=== PATIENT | male | born 1950 | race Caucasian/White ===

== ENCOUNTER 2020-03-29 16:03 | Inpatient (IN) ==
[2020-03-30] MEDS: carvediloL 6.25 MG TABLET PO SCH (17:23)
[2020-03-31 04:45] LABS: Basophils # 0.1 K/mcL (0.0-0.2); Basophils % 0.4 %; Eosinophils # 0.2 K/mcL (0.0-0.6); Eosinophils % 1.1 %; Hematocrit 52.3 % (37.5-50.1); Hemoglobin 17.3 g/dL (12.9-16.9); Immature Granulocytes % 0.6 % (0-4); Mean Corpuscular HGB Conc 33.1 g/dL (31.6-35.5); Mean Corpuscular Hemoglobin 28.5 pg (28.0-33.3); Mean Corpuscular Volume 86.2 fL (83.0-100.0); Mean Platelet Volume 9.6 fL (9.4-12.4); Monocytes # 1.2 K/mcL (0.0-1.3); Monocytes % 8.7 %; Neutrophils # 10.5 K/mcL (1.6-8.9); Platelet Count 254 K/mcL (140-400); Red Blood Count 6.07 M/mcL (4.19-5.50); Red Cell Distribution Width 14.2 % (11.5-14.5); Segmented Neutrophils % 75.2 %
[2020-03-31 05:02] LABS: Alanine Aminotransferase 25 Units/L (7-52); Albumin 3.5 g/dL (3.5-5.7); Albumin/Globulin Ratio 1.1 (1.1-2.2); Alkaline Phosphatase 56 Units/L (34-104); Aspartate Amino Transferase 18 Units/L (13-39); BUN/Creatinine Ratio 27 (6-26); Bilirubin,Total 0.8 mg/dL (0.3-1.0); Blood Urea Nitrogen 25 mg/dL (8-23); Calcium 8.6 mg/dL (8.6-10.3); Carbon Dioxide 29 mEq/L (23-29); Chloride 102 mEq/L (98-107); Globulin 3.1 g/dL (2.4-3.5); Glucose 110 mg/dL (70-105); Osmolality,Calculated 291 (280-300); Potassium 3.9 mEq/L (3.5-5.1); Sodium 138 mEq/L (136-145); Total Protein 6.6 g/dL (6.4-8.9); eGFR For African Americans > 60 (> 60); eGFR For Non-African Americans > 60 (> 60)
[2020-03-31] MEDS: *HR* Enoxaparin 40 MG/0.4 ML SYRINGE SQ SCH (05:35)
[2020-03-31] MEDS: carvediloL 6.25 MG TABLET PO SCH ×2 (05:35→17:21)
[2020-03-31] MEDS: Aspirin Enteric Coated 81 MG Tablet PO SCH (08:57)
[2020-03-31 16:49] LABS: Bilirubin,Urine Small (Negative); Blood,Urine Large (Negative); Clarity,Urine Slightly Cloudy (Clear); Color,Urine Amber (Yellow); Glucose,Urine (UA) Normal (Normal); Ketones,Urine Negative (Negative); Leukocyte Esterase,Urine Small (Negative); Nitrite,Urine Negative (Negative); Protein,Urine 100 mg/dL (Neg-Trace); Specific Gravity,Urine 1.025 (1.010-1.025); Urobilinogen,Urine Normal (Normal)
[2020-03-31 16:59] LABS: Amorphous Sediment,Urine Few per hpf (None-Few); Bacteria,Urine Many per hpf (None-Few); RBC,Urine TNTC per hpf (0-3); Squamous Epithelial Cell,Urine Few per hpf (None-Few)
[2020-04-01 04:33] LABS: Basophils # 0.1 K/mcL (0.0-0.2); Basophils % 0.3 %; Eosinophils # 0.1 K/mcL (0.0-0.6); Eosinophils % 0.4 %; Hematocrit 52.5 % (37.5-50.1); Hemoglobin 17.1 g/dL (12.9-16.9); Immature Granulocytes % 0.7 % (0-4); Lymphocytes # 2.1 K/mcL (0.6-4.6); Lymphocytes % 13.1 %; Mean Corpuscular HGB Conc 32.6 g/dL (31.6-35.5); Mean Corpuscular Hemoglobin 28.1 pg (28.0-33.3); Mean Corpuscular Volume 86.2 fL (83.0-100.0); Mean Platelet Volume 9.6 fL (9.4-12.4); Monocytes # 1.4 K/mcL (0.0-1.3); Monocytes % 8.9 %; Neutrophils # 12.1 K/mcL (1.6-8.9); Platelet Count 251 K/mcL (140-400); Red Blood Count 6.09 M/mcL (4.19-5.50); Segmented Neutrophils % 76.6 %; White Blood Count 15.8 K/mcL (4.3-11.1)
[2020-04-01 04:51] LABS: BUN/Creatinine Ratio 24 (6-26); Blood Urea Nitrogen 24 mg/dL (8-23); Calcium 8.6 mg/dL (8.6-10.3); Carbon Dioxide 29 mEq/L (23-29); Chloride 101 mEq/L (98-107); Glucose 127 mg/dL (70-105); Osmolality,Calculated 288 (280-300); Potassium 4.1 mEq/L (3.5-5.1); Sodium 136 mEq/L (136-145); eGFR For African Americans > 60 (> 60); eGFR For Non-African Americans > 60 (> 60)
[2020-04-01] MEDS: carvediloL 6.25 MG TABLET PO SCH ×2 (05:07→16:47)
[2020-04-01] MEDS: *HR* Enoxaparin 40 MG/0.4 ML SYRINGE SQ SCH (05:08)
[2020-04-01] MEDS: Aspirin Enteric Coated 81 MG Tablet PO SCH (08:51)
[2020-04-01] MEDS: cefTRIAXone 1,000 MG in 0.9 % Sodium Chloride Mini Bag 100 ML IVPB SCH (13:24)
[2020-04-01] MEDS: Nystatin POWDER 30 GM BOTTLE TP SCH ×2 (16:48→20:47)
[2020-04-01] MEDS ORDERED: Nystatin POWDER 30 GM BOTTLE TP SCH (21:00)
[2020-04-02] MEDS: *HR* Enoxaparin 40 MG/0.4 ML SYRINGE SQ SCH (04:14)
[2020-04-02] MEDS: carvediloL 6.25 MG TABLET PO SCH ×2 (04:14→17:38)
[2020-04-02 06:10] LABS: Basophils # 0.1 K/mcL (0.0-0.2); Basophils % 0.5 %; Eosinophils # 0.2 K/mcL (0.0-0.6); Eosinophils % 1.7 %; Hemoglobin 16.4 g/dL (12.9-16.9); Immature Granulocytes % 1.1 % (0-4); Lymphocytes # 2.2 K/mcL (0.6-4.6); Lymphocytes % 17.3 %; Mean Corpuscular HGB Conc 32.2 g/dL (31.6-35.5); Mean Corpuscular Hemoglobin 27.7 pg (28.0-33.3); Mean Corpuscular Volume 86.3 fL (83.0-100.0); Monocytes # 1.2 K/mcL (0.0-1.3); Monocytes % 9.7 %; Neutrophils # 8.7 K/mcL (1.6-8.9); Platelet Count 261 K/mcL (140-400); Red Blood Count 5.91 M/mcL (4.19-5.50); Red Cell Distribution Width 13.8 % (11.5-14.5); Segmented Neutrophils % 69.7 %; White Blood Count 12.5 K/mcL (4.3-11.1)
[2020-04-02 06:27] LABS: BUN/Creatinine Ratio 23 (6-26); Blood Urea Nitrogen 21 mg/dL (8-23); Calcium 8.5 mg/dL (8.6-10.3); Carbon Dioxide 29 mEq/L (23-29); Chloride 101 mEq/L (98-107); Glucose 109 mg/dL (70-105); Osmolality,Calculated 288 (280-300); Potassium 3.9 mEq/L (3.5-5.1); Sodium 137 mEq/L (136-145); eGFR For African Americans > 60 (> 60); eGFR For Non-African Americans > 60 (> 60)
[2020-04-02] MEDS: cefTRIAXone 1,000 MG in 0.9 % Sodium Chloride Mini Bag 100 ML IVPB SCH (09:27)
[2020-04-02] MEDS: Nystatin POWDER 30 GM BOTTLE TP SCH ×2 (09:28→20:32)
[2020-04-02] MEDS: Aspirin Enteric Coated 81 MG Tablet PO SCH (09:28)
[2020-04-03] MEDS: carvediloL 6.25 MG TABLET PO SCH ×2 (05:49→16:50)
[2020-04-03] MEDS: *HR* Enoxaparin 40 MG/0.4 ML SYRINGE SQ SCH (05:49)
[2020-04-03] MEDS: Nystatin POWDER 30 GM BOTTLE TP SCH ×2 (08:57→21:13)
[2020-04-03] MEDS: cefTRIAXone 1,000 MG in 0.9 % Sodium Chloride Mini Bag 100 ML IVPB SCH (08:57)
[2020-04-03] MEDS: Aspirin Enteric Coated 81 MG Tablet PO SCH (08:57)
[2020-04-03] MEDS ORDERED: *HR* LORazepam 0.5 MG TABLET PO ONE (10:55)
[2020-04-04] MEDS: *HR* Enoxaparin 40 MG/0.4 ML SYRINGE SQ SCH (06:50)
[2020-04-04] MEDS: carvediloL 6.25 MG TABLET PO SCH ×2 (06:50→16:50)
[2020-04-04] MEDS: Aspirin Enteric Coated 81 MG Tablet PO SCH (09:08)
[2020-04-04] MEDS: cefTRIAXone 1,000 MG in 0.9 % Sodium Chloride Mini Bag 100 ML IVPB SCH (09:08)
[2020-04-04] MEDS: Nystatin POWDER 30 GM BOTTLE TP SCH ×2 (09:09→20:02)
[2020-04-05] MEDS: carvediloL 6.25 MG TABLET PO SCH ×2 (05:25→18:09)
[2020-04-05] MEDS: Simethicone 80 MG TAB.CHEW PO PRN (05:26)
[2020-04-05] MEDS: *HR* Enoxaparin 40 MG/0.4 ML SYRINGE SQ SCH (05:26)
[2020-04-05] MEDS: Aspirin Enteric Coated 81 MG Tablet PO SCH (08:59)
[2020-04-05] MEDS: cefTRIAXone 1,000 MG in 0.9 % Sodium Chloride Mini Bag 100 ML IVPB SCH (09:00)
[2020-04-05] MEDS: Nystatin POWDER 30 GM BOTTLE TP SCH ×2 (09:03→20:11)
[2020-04-05] MEDS ORDERED: polyethylene glycoL 3350 17 GM POWD.PACK PO PRN (18:09)
[2020-04-05] MEDS: Sennosides/Docusate Sodium TABLET PO SCH (20:04)
[2020-04-06] MEDS: carvediloL 6.25 MG TABLET PO SCH ×2 (04:43→15:51)
[2020-04-06] MEDS: *HR* Enoxaparin 40 MG/0.4 ML SYRINGE SQ SCH (04:43)
[2020-04-06] MEDS: Aspirin Enteric Coated 81 MG Tablet PO SCH (09:42)
[2020-04-06] MEDS: Sennosides/Docusate Sodium TABLET PO SCH ×2 (09:42→20:25)
[2020-04-06] MEDS: Nystatin POWDER 30 GM BOTTLE TP SCH ×2 (13:27→20:27)
[2020-04-07] MEDS: Simethicone 80 MG TAB.CHEW PO PRN ×2 (02:56→21:21)
[2020-04-07] MEDS: carvediloL 6.25 MG TABLET PO SCH ×2 (04:21→16:33)
[2020-04-07] MEDS: *HR* Enoxaparin 40 MG/0.4 ML SYRINGE SQ SCH (04:23)
[2020-04-07 06:15] LABS: Hematocrit 48.4 % (37.5-50.1); Hemoglobin 15.6 g/dL (12.9-16.9); Mean Corpuscular HGB Conc 32.2 g/dL (31.6-35.5); Mean Corpuscular Hemoglobin 27.9 pg (28.0-33.3); Mean Corpuscular Volume 86.6 fL (83.0-100.0); Mean Platelet Volume 9.3 fL (9.4-12.4); Platelet Count 299 K/mcL (140-400); Red Blood Count 5.59 M/mcL (4.19-5.50); Red Cell Distribution Width 13.4 % (11.5-14.5)
[2020-04-07 06:28] LABS: BUN/Creatinine Ratio 16 (6-26); Blood Urea Nitrogen 14 mg/dL (8-23); Calcium 8.6 mg/dL (8.6-10.3); Carbon Dioxide 31 mEq/L (23-29); Chloride 102 mEq/L (98-107); Glucose 110 mg/dL (70-105); Magnesium 2.2 mg/dL (1.6-2.6); Osmolality,Calculated 289 (280-300); Sodium 139 mEq/L (136-145); eGFR For African Americans > 60 (> 60); eGFR For Non-African Americans > 60 (> 60)
[2020-04-07] MEDS: Sennosides/Docusate Sodium TABLET PO SCH ×2 (09:48→21:21)
[2020-04-07] MEDS: Aspirin Enteric Coated 81 MG Tablet PO SCH (09:48)
[2020-04-07] MEDS: Nystatin POWDER 30 GM BOTTLE TP SCH ×2 (09:48→21:22)
[2020-04-08] MEDS: *HR* Enoxaparin 40 MG/0.4 ML SYRINGE SQ SCH (05:31)
[2020-04-08] MEDS: carvediloL 6.25 MG TABLET PO SCH ×2 (05:31→16:58)
[2020-04-08] MEDS: Sennosides/Docusate Sodium TABLET PO SCH ×2 (09:22→20:03)
[2020-04-08] MEDS: Aspirin Enteric Coated 81 MG Tablet PO SCH (09:22)
[2020-04-08] MEDS: Nystatin POWDER 30 GM BOTTLE TP SCH ×2 (09:23→20:04)
[2020-04-08] MEDS: PARoxetine 20 MG TABLET PO SCH (13:04)
[2020-04-08] MEDS: Simethicone 80 MG TAB.CHEW PO PRN (20:04)
[2020-04-09] MEDS: *HR* Enoxaparin 40 MG/0.4 ML SYRINGE SQ SCH (06:09)
[2020-04-09] MEDS: carvediloL 6.25 MG TABLET PO SCH ×3 (06:09→18:52)
[2020-04-09] MEDS: Sennosides/Docusate Sodium TABLET PO SCH ×2 (07:21→20:08)
[2020-04-09] MEDS: Nystatin POWDER 30 GM BOTTLE TP SCH ×2 (07:42→20:08)
[2020-04-09] MEDS: Aspirin Enteric Coated 81 MG Tablet PO SCH (07:44)
[2020-04-09] MEDS: PARoxetine 20 MG TABLET PO SCH (07:44)
[2020-04-09] MEDS ORDERED: 0.9 % Sodium Chloride 1,000 ML ONE (12:35)
[2020-04-09 12:36] LABS: Basophils % 0.5 %; Eosinophils # 0.1 K/mcL (0.0-0.6); Eosinophils % 1.5 %; Immature Granulocytes % 0.6 % (0-4); Lymphocytes # 1.5 K/mcL (0.6-4.6); Lymphocytes % 17.7 %; Mean Corpuscular HGB Conc 32.7 g/dL (31.6-35.5); Mean Corpuscular Hemoglobin 28.3 pg (28.0-33.3); Mean Corpuscular Volume 86.7 fL (83.0-100.0); Monocytes # 0.8 K/mcL (0.0-1.3); Monocytes % 9.5 %; Platelet Count 297 K/mcL (140-400); Red Blood Count 5.65 M/mcL (4.19-5.50); Red Cell Distribution Width 13.4 % (11.5-14.5); Segmented Neutrophils % 70.2 %; White Blood Count 8.6 K/mcL (4.3-11.1)
[2020-04-09] MEDS: 0.9 % Sodium Chloride 1,000 ML IVC SCH ×2 (12:55→21:12)
[2020-04-09 12:56] LABS: BUN/Creatinine Ratio 17 (6-26); Blood Urea Nitrogen 14 mg/dL (8-23); Calcium 8.6 mg/dL (8.6-10.3); Carbon Dioxide 28 mEq/L (23-29); Chloride 104 mEq/L (98-107); Glucose 98 mg/dL (70-105); Magnesium 2.1 mg/dL (1.6-2.6); Osmolality,Calculated 284 (280-300); Potassium 4.4 mEq/L (3.5-5.1); Sodium 137 mEq/L (136-145); eGFR For African Americans > 60 (> 60); eGFR For Non-African Americans > 60 (> 60)
[2020-04-09 12:59] LABS: Troponin I < 0.03 ng/mL (< 0.04)
[2020-04-09] MEDS ORDERED: Perflutren Lipid Microsphere 1.3 ML in 0.9 % Sodium Chloride 8.7 ML IVP PRN (12:59)
[2020-04-10] MEDS: *HR* Enoxaparin 40 MG/0.4 ML SYRINGE SQ SCH (05:39)
[2020-04-10] MEDS: 0.9 % Sodium Chloride 1,000 ML IVC SCH ×2 (05:40→14:22)
[2020-04-10] MEDS: Aspirin Enteric Coated 81 MG Tablet PO SCH (08:05)
[2020-04-10] MEDS: PARoxetine 20 MG TABLET PO SCH (08:05)
[2020-04-10] MEDS: Nystatin POWDER 30 GM BOTTLE TP SCH ×2 (08:05→20:28)
[2020-04-10] MEDS: Sennosides/Docusate Sodium TABLET PO SCH ×2 (08:05→20:27)
[2020-04-10] MEDS: carvediloL 6.25 MG TABLET PO SCH (09:25)
[2020-04-10 09:40] LABS: Basophils # 0.1 K/mcL (0.0-0.2); Basophils % 0.7 %; Eosinophils # 0.2 K/mcL (0.0-0.6); Eosinophils % 2.7 %; Hematocrit 47.5 % (37.5-50.1); Hemoglobin 15.3 g/dL (12.9-16.9); Immature Granulocytes % 0.4 % (0-4); Lymphocytes # 1.7 K/mcL (0.6-4.6); Lymphocytes % 24.6 %; Mean Corpuscular HGB Conc 32.2 g/dL (31.6-35.5); Mean Corpuscular Hemoglobin 28.2 pg (28.0-33.3); Mean Corpuscular Volume 87.6 fL (83.0-100.0); Mean Platelet Volume 9.1 fL (9.4-12.4); Monocytes # 0.6 K/mcL (0.0-1.3); Monocytes % 8.7 %; Neutrophils # 4.3 K/mcL (1.6-8.9); Platelet Count 260 K/mcL (140-400); Red Blood Count 5.42 M/mcL (4.19-5.50); Red Cell Distribution Width 13.3 % (11.5-14.5); Segmented Neutrophils % 62.9 %; White Blood Count 6.8 K/mcL (4.3-11.1)
[2020-04-10 09:56] LABS: BUN/Creatinine Ratio 15 (6-26); Blood Urea Nitrogen 12 mg/dL (8-23); Carbon Dioxide 27 mEq/L (23-29); Chloride 107 mEq/L (98-107); Glucose 138 mg/dL (70-105); Magnesium 1.9 mg/dL (1.6-2.6); Osmolality,Calculated 290 (280-300); Sodium 139 mEq/L (136-145); eGFR For African Americans > 60 (> 60); eGFR For Non-African Americans > 60 (> 60)
[2020-04-10] MEDS: Simethicone 80 MG TAB.CHEW PO PRN (14:25)
[2020-04-11] MEDS ORDERED: hydrALAZINE 10 MG TABLET PO ONE (00:32)
[2020-04-11] MEDS: *HR* Enoxaparin 40 MG/0.4 ML SYRINGE SQ SCH (06:33)
[2020-04-11] MEDS: PARoxetine 20 MG TABLET PO SCH (08:28)
[2020-04-11] MEDS: Sennosides/Docusate Sodium TABLET PO SCH ×2 (08:29→21:21)
[2020-04-11] MEDS: Aspirin Enteric Coated 81 MG Tablet PO SCH (08:29)
[2020-04-11] MEDS: Nystatin POWDER 30 GM BOTTLE TP SCH ×2 (08:29→21:24)
[2020-04-11] MEDS ORDERED: CloNIDine Patch 0.1 MG PATCH (WEEKLY) TD SCH (08:30)
[2020-04-11] MEDS ORDERED: carvediloL 6.25 MG TABLET PO SCH (08:30)
[2020-04-11] MEDS: carvediloL 6.25 MG TABLET PO SCH (09:34)
[2020-04-11] MEDS: hydrALAZINE 10 MG TABLET PO SCH ×2 (10:57→17:12)
[2020-04-11] MEDS: Simethicone 80 MG TAB.CHEW PO PRN (13:32)
[2020-04-11] MEDS ORDERED: hydrALAZINE 25 MG TABLET PO PRN (22:00)
[2020-04-11] MEDS: hydrALAZINE 25 MG TABLET PO SCH ×2 (22:13→23:48)
[2020-04-12] MEDS: *HR* Enoxaparin 40 MG/0.4 ML SYRINGE SQ SCH (04:54)
[2020-04-12] MEDS: Aspirin Enteric Coated 81 MG Tablet PO SCH (07:52)
[2020-04-12] MEDS: Sennosides/Docusate Sodium TABLET PO SCH ×2 (07:52→19:50)
[2020-04-12] MEDS: hydrALAZINE 25 MG TABLET PO SCH ×3 (07:52→23:57)
[2020-04-12] MEDS: PARoxetine 20 MG TABLET PO SCH (07:52)
[2020-04-12] MEDS: Nystatin POWDER 30 GM BOTTLE TP SCH ×2 (07:53→19:50)
[2020-04-12] MEDS ORDERED: amLODIPine 5 MG TABLET PO SCH (10:00)
[2020-04-13] MEDS: *HR* Enoxaparin 40 MG/0.4 ML SYRINGE SQ SCH (04:54)
[2020-04-13] MEDS: Simethicone 80 MG TAB.CHEW PO PRN ×2 (07:00→23:35)
[2020-04-13] MEDS: Sennosides/Docusate Sodium TABLET PO SCH ×2 (09:09→22:53)
[2020-04-13] MEDS: amLODIPine 5 MG TABLET PO SCH (09:09)
[2020-04-13] MEDS: Aspirin Enteric Coated 81 MG Tablet PO SCH (09:09)
[2020-04-13] MEDS: hydrALAZINE 25 MG TABLET PO SCH ×3 (09:09→22:53)
[2020-04-13] MEDS: PARoxetine 20 MG TABLET PO SCH (09:10)
[2020-04-13] MEDS: Nystatin POWDER 30 GM BOTTLE TP SCH ×2 (09:10→22:54)
[2020-04-14] MEDS: *HR* Enoxaparin 40 MG/0.4 ML SYRINGE SQ SCH (05:51)
[2020-04-14] MEDS: amLODIPine 5 MG TABLET PO SCH (08:41)
[2020-04-14] MEDS: Sennosides/Docusate Sodium TABLET PO SCH ×2 (08:42→21:56)
[2020-04-14] MEDS: Aspirin Enteric Coated 81 MG Tablet PO SCH (08:42)
[2020-04-14] MEDS: PARoxetine 20 MG TABLET PO SCH (08:42)
[2020-04-14] MEDS: hydrALAZINE 25 MG TABLET PO SCH ×3 (08:42→22:00)
[2020-04-14] MEDS: Nystatin POWDER 30 GM BOTTLE TP SCH ×2 (17:38→21:56)
[2020-04-15] MEDS: *HR* Enoxaparin 40 MG/0.4 ML SYRINGE SQ SCH (04:10)
[2020-04-15] MEDS: Sennosides/Docusate Sodium TABLET PO SCH ×2 (07:45→20:20)
[2020-04-15] MEDS: PARoxetine 20 MG TABLET PO SCH (07:45)
[2020-04-15] MEDS: amLODIPine 5 MG TABLET PO SCH (07:45)
[2020-04-15] MEDS: Aspirin Enteric Coated 81 MG Tablet PO SCH (07:45)
[2020-04-15] MEDS: Nystatin POWDER 30 GM BOTTLE TP SCH ×2 (07:46→20:20)
[2020-04-15] MEDS: hydrALAZINE 25 MG TABLET PO SCH ×2 (09:33→17:18)
[2020-04-16] MEDS: hydrALAZINE 25 MG TABLET PO SCH ×4 (00:03→22:09)
[2020-04-16] MEDS: Simethicone 80 MG TAB.CHEW PO PRN ×2 (04:11→22:09)
[2020-04-16] MEDS: *HR* Enoxaparin 40 MG/0.4 ML SYRINGE SQ SCH (05:32)
[2020-04-16] MEDS: Aspirin Enteric Coated 81 MG Tablet PO SCH (08:13)
[2020-04-16] MEDS: amLODIPine 5 MG TABLET PO SCH (08:13)
[2020-04-16] MEDS: PARoxetine 20 MG TABLET PO SCH (08:14)
[2020-04-16] MEDS: Nystatin POWDER 30 GM BOTTLE TP SCH ×2 (08:15→22:09)
[2020-04-16] MEDS: Sennosides/Docusate Sodium TABLET PO SCH ×2 (09:44→22:08)
[2020-04-16] MEDS: carvediloL 6.25 MG TABLET PO SCH (15:55)
[2020-04-17] MEDS: *HR* Enoxaparin 40 MG/0.4 ML SYRINGE SQ SCH (05:13)
[2020-04-17 05:20] LABS: Hemoglobin 15.9 g/dL (12.9-16.9); Mean Corpuscular HGB Conc 31.8 g/dL (31.6-35.5); Mean Corpuscular Hemoglobin 27.7 pg (28.0-33.3); Mean Platelet Volume 9.4 fL (9.4-12.4); Platelet Count 271 K/mcL (140-400); Red Blood Count 5.75 M/mcL (4.19-5.50); Red Cell Distribution Width 13.6 % (11.5-14.5); White Blood Count 6.3 K/mcL (4.3-11.1)
[2020-04-17 05:33] LABS: BUN/Creatinine Ratio 17 (6-26); Blood Urea Nitrogen 17 mg/dL (8-23); Calcium 8.7 mg/dL (8.6-10.3); Carbon Dioxide 31 mEq/L (23-29); Chloride 102 mEq/L (98-107); Glucose 105 mg/dL (70-105); Magnesium 1.9 mg/dL (1.6-2.6); Osmolality,Calculated 288 (280-300); Potassium 4.1 mEq/L (3.5-5.1); Sodium 138 mEq/L (136-145); eGFR For African Americans > 60 (> 60); eGFR For Non-African Americans > 60 (> 60)
[2020-04-17] MEDS: carvediloL 6.25 MG TABLET PO SCH (08:13)
[2020-04-17] MEDS: amLODIPine 5 MG TABLET PO SCH (08:14)
[2020-04-17] MEDS: PARoxetine 20 MG TABLET PO SCH (08:14)
[2020-04-17] MEDS: Sennosides/Docusate Sodium TABLET PO SCH ×2 (08:14→20:43)
[2020-04-17] MEDS: hydrALAZINE 25 MG TABLET PO SCH ×2 (08:14→16:23)
[2020-04-17] MEDS: Aspirin Enteric Coated 81 MG Tablet PO SCH (08:15)
[2020-04-17] MEDS: Nystatin POWDER 30 GM BOTTLE TP SCH ×2 (08:18→21:32)
[2020-04-17] MEDS: Simethicone 80 MG TAB.CHEW PO PRN (20:43)
[2020-04-18] MEDS: hydrALAZINE 25 MG TABLET PO SCH ×4 (00:46→23:41)
[2020-04-18] MEDS: *HR* Enoxaparin 40 MG/0.4 ML SYRINGE SQ SCH (05:07)
[2020-04-18] MEDS: amLODIPine 5 MG TABLET PO SCH (09:36)
[2020-04-18] MEDS: PARoxetine 20 MG TABLET PO SCH (09:36)
[2020-04-18] MEDS: Aspirin Enteric Coated 81 MG Tablet PO SCH (09:36)
[2020-04-18] MEDS: Sennosides/Docusate Sodium TABLET PO SCH ×2 (09:36→21:30)
[2020-04-18] MEDS: Nystatin POWDER 30 GM BOTTLE TP SCH ×2 (10:00→21:29)
[2020-04-19] MEDS: *HR* Enoxaparin 40 MG/0.4 ML SYRINGE SQ SCH (05:21)
[2020-04-19] MEDS: PARoxetine 20 MG TABLET PO SCH (07:46)
[2020-04-19] MEDS: Sennosides/Docusate Sodium TABLET PO SCH ×2 (07:46→20:29)
[2020-04-19] MEDS: hydrALAZINE 25 MG TABLET PO SCH ×3 (07:47→23:33)
[2020-04-19] MEDS: Aspirin Enteric Coated 81 MG Tablet PO SCH (07:47)
[2020-04-19] MEDS: Simethicone 80 MG TAB.CHEW PO PRN ×2 (07:47→23:32)
[2020-04-19] MEDS: amLODIPine 5 MG TABLET PO SCH (07:47)
[2020-04-19] MEDS: Nystatin POWDER 30 GM BOTTLE TP SCH ×2 (07:47→20:29)
[2020-04-20] MEDS: *HR* Enoxaparin 40 MG/0.4 ML SYRINGE SQ SCH (04:40)
[2020-04-20] MEDS: Simethicone 80 MG TAB.CHEW PO PRN (04:53)
[2020-04-20] MEDS: Sennosides/Docusate Sodium TABLET PO SCH ×2 (08:34→20:33)
[2020-04-20] MEDS: amLODIPine 5 MG TABLET PO SCH (08:34)
[2020-04-20] MEDS: Aspirin Enteric Coated 81 MG Tablet PO SCH (08:34)
[2020-04-20] MEDS: hydrALAZINE 25 MG TABLET PO SCH ×2 (08:34→17:54)
[2020-04-20] MEDS: PARoxetine 20 MG TABLET PO SCH (09:13)
[2020-04-20] MEDS ORDERED: E-Z-HD (BARIUM SULF) SUSPENSION PO ONE (13:35)
[2020-04-20] MEDS ORDERED: E-Z-PAQUE (BARIUM SULF) SUSP 1 BOTTLE PO ONE (13:35)
[2020-04-20] MEDS: Nystatin POWDER 30 GM BOTTLE TP SCH ×2 (14:12→20:33)
[2020-04-21] MEDS: Simethicone 80 MG TAB.CHEW PO PRN ×4 (01:38→22:56)
[2020-04-21] MEDS: hydrALAZINE 25 MG TABLET PO SCH ×4 (01:39→22:53)
[2020-04-21] MEDS: *HR* Enoxaparin 40 MG/0.4 ML SYRINGE SQ SCH (06:29)
[2020-04-21] MEDS: PARoxetine 20 MG TABLET PO SCH (08:10)
[2020-04-21] MEDS: Aspirin Enteric Coated 81 MG Tablet PO SCH (08:10)
[2020-04-21] MEDS: amLODIPine 5 MG TABLET PO SCH (08:11)
[2020-04-21] MEDS: Nystatin POWDER 30 GM BOTTLE TP SCH ×2 (08:11→20:47)
[2020-04-21] MEDS: Sennosides/Docusate Sodium TABLET PO SCH ×2 (08:11→20:47)
[2020-04-22] MEDS: *HR* Enoxaparin 40 MG/0.4 ML SYRINGE SQ SCH (04:57)
[2020-04-22] MEDS: Sennosides/Docusate Sodium TABLET PO SCH ×2 (08:42→19:56)
[2020-04-22] MEDS: hydrALAZINE 25 MG TABLET PO SCH ×3 (08:42→23:41)
[2020-04-22] MEDS: Simethicone 80 MG TAB.CHEW PO PRN (08:42)
[2020-04-22] MEDS: PARoxetine 20 MG TABLET PO SCH (08:43)
[2020-04-22] MEDS: Aspirin Enteric Coated 81 MG Tablet PO SCH (08:43)
[2020-04-22] MEDS: amLODIPine 5 MG TABLET PO SCH (08:43)
[2020-04-22] MEDS: Nystatin POWDER 30 GM BOTTLE TP SCH ×2 (08:44→22:41)
[2020-04-23] MEDS: Simethicone 80 MG TAB.CHEW PO PRN ×2 (02:09→18:29)
[2020-04-23] MEDS: *HR* Enoxaparin 40 MG/0.4 ML SYRINGE SQ SCH (05:05)
[2020-04-23] MEDS: Sennosides/Docusate Sodium TABLET PO SCH ×2 (08:14→20:16)
[2020-04-23] MEDS: PARoxetine 20 MG TABLET PO SCH (08:14)
[2020-04-23] MEDS: Aspirin Enteric Coated 81 MG Tablet PO SCH (08:14)
[2020-04-23] MEDS: Nystatin POWDER 30 GM BOTTLE TP SCH ×2 (08:15→20:16)
[2020-04-23] MEDS: hydrALAZINE 25 MG TABLET PO SCH ×2 (08:15→17:04)
[2020-04-23] MEDS: amLODIPine 5 MG TABLET PO SCH (10:06)
[2020-04-24] MEDS: hydrALAZINE 25 MG TABLET PO SCH ×3 (00:27→16:31)
[2020-04-24] MEDS: *HR* Enoxaparin 40 MG/0.4 ML SYRINGE SQ SCH (04:46)
[2020-04-24] MEDS: PARoxetine 20 MG TABLET PO SCH (08:26)
[2020-04-24] MEDS: amLODIPine 5 MG TABLET PO SCH (08:26)
[2020-04-24] MEDS: Sennosides/Docusate Sodium TABLET PO SCH ×2 (08:26→19:45)
[2020-04-24] MEDS: Aspirin Enteric Coated 81 MG Tablet PO SCH (08:27)
[2020-04-24] MEDS: Nystatin POWDER 30 GM BOTTLE TP SCH ×2 (08:29→19:45)
[2020-04-25] MEDS: hydrALAZINE 25 MG TABLET PO SCH ×4 (01:53→23:53)
[2020-04-25] MEDS: *HR* Enoxaparin 40 MG/0.4 ML SYRINGE SQ SCH (05:21)
[2020-04-25 05:44] LABS: Hemoglobin 16.1 g/dL (12.9-16.9); Mean Corpuscular HGB Conc 32.2 g/dL (31.6-35.5); Mean Corpuscular Hemoglobin 27.6 pg (28.0-33.3); Mean Corpuscular Volume 85.8 fL (83.0-100.0); Mean Platelet Volume 9.5 fL (9.4-12.4); Platelet Count 237 K/mcL (140-400); Red Blood Count 5.83 M/mcL (4.19-5.50); Red Cell Distribution Width 13.8 % (11.5-14.5); White Blood Count 6.6 K/mcL (4.3-11.1)
[2020-04-25] MEDS: Simethicone 80 MG TAB.CHEW PO PRN ×2 (05:59→23:48)
[2020-04-25 06:16] LABS: Alanine Aminotransferase 33 Units/L (7-52); Albumin 3.4 g/dL (3.5-5.7); Albumin/Globulin Ratio 1.2 (1.1-2.2); Alkaline Phosphatase 57 Units/L (34-104); Aspartate Amino Transferase 25 Units/L (13-39); BUN/Creatinine Ratio 16 (6-26); Bilirubin,Total 0.6 mg/dL (0.3-1.0); Blood Urea Nitrogen 16 mg/dL (8-23); Calcium 8.5 mg/dL (8.6-10.3); Carbon Dioxide 27 mEq/L (23-29); Chloride 104 mEq/L (98-107); Globulin 2.8 g/dL (2.4-3.5); Glucose 105 mg/dL (70-105); Magnesium 1.7 mg/dL (1.6-2.6); Osmolality,Calculated 290 (280-300); Potassium 4.1 mEq/L (3.5-5.1); Sodium 139 mEq/L (136-145); Total Protein 6.2 g/dL (6.4-8.9); eGFR For African Americans > 60 (> 60); eGFR For Non-African Americans > 60 (> 60)
[2020-04-25] MEDS: amLODIPine 5 MG TABLET PO SCH (07:57)
[2020-04-25] MEDS: Sennosides/Docusate Sodium TABLET PO SCH ×2 (07:58→20:12)
[2020-04-25] MEDS: PARoxetine 20 MG TABLET PO SCH (07:58)
[2020-04-25] MEDS: Aspirin Enteric Coated 81 MG Tablet PO SCH (07:58)
[2020-04-25] MEDS: Nystatin POWDER 30 GM BOTTLE TP SCH ×2 (08:00→20:19)
[2020-04-26] MEDS: *HR* Enoxaparin 40 MG/0.4 ML SYRINGE SQ SCH (06:29)
[2020-04-26] MEDS: hydrALAZINE 25 MG TABLET PO SCH ×3 (08:33→23:38)
[2020-04-26] MEDS: amLODIPine 5 MG TABLET PO SCH (08:33)
[2020-04-26] MEDS: Nystatin POWDER 30 GM BOTTLE TP SCH ×2 (08:34→22:59)
[2020-04-26] MEDS: PARoxetine 20 MG TABLET PO SCH (08:34)
[2020-04-26] MEDS: Sennosides/Docusate Sodium TABLET PO SCH ×2 (08:35→22:22)
[2020-04-26] MEDS: Aspirin Enteric Coated 81 MG Tablet PO SCH (08:35)
[2020-04-26] MEDS: Simethicone 80 MG TAB.CHEW PO PRN (14:31)
[2020-04-27] MEDS: *HR* Enoxaparin 40 MG/0.4 ML SYRINGE SQ SCH (05:36)
[2020-04-27] MEDS: amLODIPine 5 MG TABLET PO SCH (08:25)
[2020-04-27] MEDS: hydrALAZINE 25 MG TABLET PO SCH ×2 (08:25→16:45)
[2020-04-27] MEDS: PARoxetine 20 MG TABLET PO SCH (08:25)
[2020-04-27] MEDS: Sennosides/Docusate Sodium TABLET PO SCH ×2 (08:26→21:05)
[2020-04-27] MEDS: Aspirin Enteric Coated 81 MG Tablet PO SCH (08:26)
[2020-04-27] MEDS: Nystatin POWDER 30 GM BOTTLE TP SCH ×2 (08:26→21:09)
[2020-04-27] MEDS: Simethicone 80 MG TAB.CHEW PO PRN ×2 (08:33→22:03)
[2020-04-27] MEDS: Polymyxn-B/Trimeth Opth Drops 10 ML BOTTLE RIGHT EYE SCH ×3 (12:41→21:08)
[2020-04-27] MEDS: Polymyxn-B/Trimeth Opth Drops 10 ML BOTTLE LEFT EYE SCH ×3 (12:42→21:08)
[2020-04-28] MEDS: hydrALAZINE 25 MG TABLET PO SCH ×5 (04:42→22:48)
[2020-04-28] MEDS: Simethicone 80 MG TAB.CHEW PO PRN ×2 (05:33→17:41)
[2020-04-28] MEDS: *HR* Enoxaparin 40 MG/0.4 ML SYRINGE SQ SCH (05:34)
[2020-04-28] MEDS: amLODIPine 5 MG TABLET PO SCH (08:41)
[2020-04-28] MEDS: PARoxetine 20 MG TABLET PO SCH (08:41)
[2020-04-28] MEDS: Aspirin Enteric Coated 81 MG Tablet PO SCH (08:41)
[2020-04-28] MEDS: Sennosides/Docusate Sodium TABLET PO SCH ×2 (08:41→22:48)
[2020-04-28] MEDS: Nystatin POWDER 30 GM BOTTLE TP SCH ×2 (08:42→22:48)
[2020-04-28] MEDS: Polymyxn-B/Trimeth Opth Drops 10 ML BOTTLE RIGHT EYE SCH ×4 (08:42→22:47)
[2020-04-28] MEDS: Polymyxn-B/Trimeth Opth Drops 10 ML BOTTLE LEFT EYE SCH ×4 (08:42→22:48)
[2020-04-29] MEDS: *HR* Enoxaparin 40 MG/0.4 ML SYRINGE SQ SCH (04:47)
[2020-04-29] MEDS: Sennosides/Docusate Sodium TABLET PO SCH ×2 (08:49→21:16)
[2020-04-29] MEDS: amLODIPine 5 MG TABLET PO SCH (08:50)
[2020-04-29] MEDS: PARoxetine 20 MG TABLET PO SCH (08:50)
[2020-04-29] MEDS: hydrALAZINE 25 MG TABLET PO SCH ×2 (08:50→17:37)
[2020-04-29] MEDS: Polymyxn-B/Trimeth Opth Drops 10 ML BOTTLE LEFT EYE SCH ×4 (08:50→21:15)
[2020-04-29] MEDS: Polymyxn-B/Trimeth Opth Drops 10 ML BOTTLE RIGHT EYE SCH ×4 (08:50→21:15)
[2020-04-29] MEDS: Aspirin Enteric Coated 81 MG Tablet PO SCH (08:50)
[2020-04-29] MEDS: Nystatin POWDER 30 GM BOTTLE TP SCH ×2 (08:50→21:16)
[2020-04-29] MEDS: Simethicone 80 MG TAB.CHEW PO PRN ×3 (09:42→21:20)
[2020-04-30] MEDS: hydrALAZINE 25 MG TABLET PO SCH ×4 (02:10→23:57)
[2020-04-30] MEDS: *HR* Enoxaparin 40 MG/0.4 ML SYRINGE SQ SCH (05:26)
[2020-04-30] MEDS: Simethicone 80 MG TAB.CHEW PO PRN ×2 (08:36→22:17)
[2020-04-30] MEDS: amLODIPine 5 MG TABLET PO SCH (08:37)
[2020-04-30] MEDS: Sennosides/Docusate Sodium TABLET PO SCH ×2 (08:37→22:19)
[2020-04-30] MEDS: Nystatin POWDER 30 GM BOTTLE TP SCH ×2 (08:37→22:18)
[2020-04-30] MEDS: Aspirin Enteric Coated 81 MG Tablet PO SCH (08:37)
[2020-04-30] MEDS: PARoxetine 20 MG TABLET PO SCH (08:37)
[2020-04-30] MEDS: Polymyxn-B/Trimeth Opth Drops 10 ML BOTTLE LEFT EYE SCH ×4 (09:07→22:17)
[2020-04-30] MEDS: Polymyxn-B/Trimeth Opth Drops 10 ML BOTTLE RIGHT EYE SCH ×4 (09:07→22:17)
[2020-05-01] MEDS: *HR* Enoxaparin 40 MG/0.4 ML SYRINGE SQ SCH (06:26)
[2020-05-01] MEDS: PARoxetine 20 MG TABLET PO SCH (07:53)
[2020-05-01] MEDS: Aspirin Enteric Coated 81 MG Tablet PO SCH (07:53)
[2020-05-01] MEDS: hydrALAZINE 25 MG TABLET PO SCH ×3 (07:53→23:47)
[2020-05-01] MEDS: amLODIPine 5 MG TABLET PO SCH (07:53)
[2020-05-01] MEDS: Sennosides/Docusate Sodium TABLET PO SCH ×2 (07:54→21:29)
[2020-05-01] MEDS: Nystatin POWDER 30 GM BOTTLE TP SCH ×2 (07:54→21:29)
[2020-05-01] MEDS: Polymyxn-B/Trimeth Opth Drops 10 ML BOTTLE RIGHT EYE SCH ×4 (08:01→21:28)
[2020-05-01] MEDS: Polymyxn-B/Trimeth Opth Drops 10 ML BOTTLE LEFT EYE SCH ×4 (08:01→21:28)
[2020-05-01] MEDS: Simethicone 80 MG TAB.CHEW PO PRN (21:29)
[2020-05-02] MEDS: *HR* Enoxaparin 40 MG/0.4 ML SYRINGE SQ SCH (06:13)
[2020-05-02] MEDS: Simethicone 80 MG TAB.CHEW PO PRN (09:54)
[2020-05-02] MEDS: amLODIPine 5 MG TABLET PO SCH (09:54)
[2020-05-02] MEDS: hydrALAZINE 25 MG TABLET PO SCH ×2 (09:54→15:11)
[2020-05-02] MEDS: Sennosides/Docusate Sodium TABLET PO SCH ×2 (09:54→20:36)
[2020-05-02] MEDS: Aspirin Enteric Coated 81 MG Tablet PO SCH (09:54)
[2020-05-02] MEDS: PARoxetine 20 MG TABLET PO SCH (09:54)
[2020-05-02] MEDS: Polymyxn-B/Trimeth Opth Drops 10 ML BOTTLE RIGHT EYE SCH ×2 (10:00→13:03)
[2020-05-02] MEDS: Polymyxn-B/Trimeth Opth Drops 10 ML BOTTLE LEFT EYE SCH ×4 (10:00→20:34)
[2020-05-02] MEDS: Nystatin POWDER 30 GM BOTTLE TP SCH ×2 (10:00→20:36)
[2020-05-03] MEDS: Simethicone 80 MG TAB.CHEW PO PRN ×2 (01:19→08:31)
[2020-05-03] MEDS: hydrALAZINE 25 MG TABLET PO SCH ×4 (01:20→23:04)
[2020-05-03] MEDS: *HR* Enoxaparin 40 MG/0.4 ML SYRINGE SQ SCH (05:24)
[2020-05-03] MEDS: Aspirin Enteric Coated 81 MG Tablet PO SCH (08:26)
[2020-05-03] MEDS: Sennosides/Docusate Sodium TABLET PO SCH ×2 (08:26→21:10)
[2020-05-03] MEDS: PARoxetine 20 MG TABLET PO SCH (08:26)
[2020-05-03] MEDS: amLODIPine 5 MG TABLET PO SCH (08:26)
[2020-05-03] MEDS: Nystatin POWDER 30 GM BOTTLE TP SCH ×2 (08:27→21:10)
[2020-05-03] MEDS: Polymyxn-B/Trimeth Opth Drops 10 ML BOTTLE LEFT EYE SCH ×4 (08:27→21:09)
[2020-05-03] MEDS: Acetaminophen 325 MG TABLET PO PRN (15:43)
[2020-05-03] MEDS ORDERED: carvediloL 6.25 MG TABLET PO SCH (17:00)
[2020-05-03] MEDS: carvediloL 6.25 MG TABLET PO SCH (17:08)
[2020-05-04] MEDS: *HR* Enoxaparin 40 MG/0.4 ML SYRINGE SQ SCH (04:51)
[2020-05-04] MEDS: Aspirin Enteric Coated 81 MG Tablet PO SCH (08:08)
[2020-05-04] MEDS: carvediloL 6.25 MG TABLET PO SCH ×2 (08:09→16:59)
[2020-05-04] MEDS: amLODIPine 5 MG TABLET PO SCH (08:09)
[2020-05-04] MEDS: hydrALAZINE 25 MG TABLET PO SCH ×3 (08:09→23:24)
[2020-05-04] MEDS: Simethicone 80 MG TAB.CHEW PO PRN (08:09)
[2020-05-04] MEDS: Sennosides/Docusate Sodium TABLET PO SCH ×2 (08:09→19:39)
[2020-05-04] MEDS: PARoxetine 20 MG TABLET PO SCH (08:09)
[2020-05-04] MEDS: Polymyxn-B/Trimeth Opth Drops 10 ML BOTTLE LEFT EYE SCH ×4 (08:09→19:38)
[2020-05-04] MEDS: Nystatin POWDER 30 GM BOTTLE TP SCH ×2 (08:10→19:38)
[2020-05-04] MEDS ORDERED: amLODIPine 5 MG TABLET PO SCH (09:00)
[2020-05-04] MEDS: Acetaminophen 325 MG TABLET PO PRN (19:37)
[2020-05-05] MEDS: *HR* Enoxaparin 40 MG/0.4 ML SYRINGE SQ SCH (04:43)
[2020-05-05] MEDS: Aspirin Enteric Coated 81 MG Tablet PO SCH (07:44)
[2020-05-05] MEDS: hydrALAZINE 25 MG TABLET PO SCH ×2 (07:45→17:08)
[2020-05-05] MEDS: amLODIPine 5 MG TABLET PO SCH (07:45)
[2020-05-05] MEDS: PARoxetine 20 MG TABLET PO SCH (07:45)
[2020-05-05] MEDS: Sennosides/Docusate Sodium TABLET PO SCH ×2 (07:45→21:06)
[2020-05-05] MEDS: carvediloL 6.25 MG TABLET PO SCH (07:45)
[2020-05-05] MEDS: Simethicone 80 MG TAB.CHEW PO PRN (07:55)
[2020-05-05] MEDS: Polymyxn-B/Trimeth Opth Drops 10 ML BOTTLE LEFT EYE SCH ×4 (13:09→21:06)
[2020-05-05] MEDS: Nystatin POWDER 30 GM BOTTLE TP SCH ×2 (13:35→21:10)
[2020-05-06] MEDS: hydrALAZINE 25 MG TABLET PO SCH ×3 (01:16→16:59)
[2020-05-06] MEDS: *HR* Enoxaparin 40 MG/0.4 ML SYRINGE SQ SCH (05:14)
[2020-05-06] MEDS: Simethicone 80 MG TAB.CHEW PO PRN (05:51)
[2020-05-06] MEDS: Aspirin Enteric Coated 81 MG Tablet PO SCH (08:06)
[2020-05-06] MEDS: Sennosides/Docusate Sodium TABLET PO SCH ×2 (08:07→21:16)
[2020-05-06] MEDS: PARoxetine 20 MG TABLET PO SCH (08:07)
[2020-05-06] MEDS: amLODIPine 5 MG TABLET PO SCH (08:07)
[2020-05-06] MEDS: Nystatin POWDER 30 GM BOTTLE TP SCH ×2 (08:08→21:15)
[2020-05-06] MEDS: Polymyxn-B/Trimeth Opth Drops 10 ML BOTTLE LEFT EYE SCH ×4 (08:09→21:16)
[2020-05-07] MEDS: hydrALAZINE 25 MG TABLET PO SCH ×3 (01:34→16:36)
[2020-05-07] MEDS: *HR* Enoxaparin 40 MG/0.4 ML SYRINGE SQ SCH (04:32)
[2020-05-07] MEDS: Aspirin Enteric Coated 81 MG Tablet PO SCH (08:06)
[2020-05-07] MEDS: Sennosides/Docusate Sodium TABLET PO SCH ×2 (08:06→19:56)
[2020-05-07] MEDS: Polymyxn-B/Trimeth Opth Drops 10 ML BOTTLE LEFT EYE SCH ×4 (08:06→19:56)
[2020-05-07] MEDS: Nystatin POWDER 30 GM BOTTLE TP SCH ×2 (08:06→19:56)
[2020-05-07] MEDS: PARoxetine 20 MG TABLET PO SCH (08:06)
[2020-05-07] MEDS: amLODIPine 5 MG TABLET PO SCH (08:06)
[2020-05-07] MEDS: Simethicone 80 MG TAB.CHEW PO PRN (12:27)
[2020-05-08] MEDS: hydrALAZINE 25 MG TABLET PO SCH ×4 (02:43→23:58)
[2020-05-08] MEDS: *HR* Enoxaparin 40 MG/0.4 ML SYRINGE SQ SCH (06:19)
[2020-05-08] MEDS: PARoxetine 20 MG TABLET PO SCH (09:00)
[2020-05-08] MEDS: Aspirin Enteric Coated 81 MG Tablet PO SCH (09:00)
[2020-05-08] MEDS: Sennosides/Docusate Sodium TABLET PO SCH ×2 (09:00→21:12)
[2020-05-08] MEDS: amLODIPine 5 MG TABLET PO SCH (09:00)
[2020-05-08] MEDS: Nystatin POWDER 30 GM BOTTLE TP SCH ×2 (09:01→21:16)
[2020-05-08] MEDS: Polymyxn-B/Trimeth Opth Drops 10 ML BOTTLE LEFT EYE SCH ×4 (09:02→21:13)
[2020-05-09] MEDS: *HR* Enoxaparin 40 MG/0.4 ML SYRINGE SQ SCH (06:25)
[2020-05-09] MEDS: hydrALAZINE 25 MG TABLET PO SCH ×3 (08:07→23:40)
[2020-05-09] MEDS: Aspirin Enteric Coated 81 MG Tablet PO SCH (08:16)
[2020-05-09] MEDS: PARoxetine 20 MG TABLET PO SCH (08:16)
[2020-05-09] MEDS: amLODIPine 5 MG TABLET PO SCH (08:16)
[2020-05-09] MEDS: Sennosides/Docusate Sodium TABLET PO SCH ×2 (08:16→20:24)
[2020-05-09] MEDS: Nystatin POWDER 30 GM BOTTLE TP SCH ×2 (08:17→20:23)
[2020-05-09] MEDS: Polymyxn-B/Trimeth Opth Drops 10 ML BOTTLE LEFT EYE SCH ×4 (08:19→20:23)
[2020-05-09] MEDS: Simethicone 80 MG TAB.CHEW PO PRN (20:24)
[2020-05-10 05:57] LABS: Basophils % 0.6 %; Eosinophils # 0.4 K/mcL (0.0-0.6); Eosinophils % 6.1 %; Hematocrit 44.1 % (37.5-50.1); Hemoglobin 14.2 g/dL (12.9-16.9); Immature Granulocytes % 0.4 % (0-4); Lymphocytes # 2.4 K/mcL (0.6-4.6); Lymphocytes % 33.6 %; Mean Corpuscular HGB Conc 32.2 g/dL (31.6-35.5); Mean Corpuscular Hemoglobin 27.7 pg (28.0-33.3); Mean Platelet Volume 9.3 fL (9.4-12.4); Monocytes # 0.8 K/mcL (0.0-1.3); Monocytes % 10.6 %; Neutrophils # 3.4 K/mcL (1.6-8.9); Platelet Count 235 K/mcL (140-400); Red Blood Count 5.13 M/mcL (4.19-5.50); Red Cell Distribution Width 14.1 % (11.5-14.5); Segmented Neutrophils % 48.7 %; White Blood Count 7.1 K/mcL (4.3-11.1)
[2020-05-10 06:15] LABS: BUN/Creatinine Ratio 20 (6-26); Blood Urea Nitrogen 18 mg/dL (8-23); Calcium 8.7 mg/dL (8.6-10.3); Carbon Dioxide 30 mEq/L (23-29); Chloride 104 mEq/L (98-107); Glucose 96 mg/dL (70-105); Osmolality,Calculated 290 (280-300); Potassium 3.8 mEq/L (3.5-5.1); Sodium 139 mEq/L (136-145); eGFR For African Americans > 60 (> 60); eGFR For Non-African Americans > 60 (> 60)
[2020-05-10] MEDS: *HR* Enoxaparin 40 MG/0.4 ML SYRINGE SQ SCH (06:29)
[2020-05-10] MEDS: hydrALAZINE 25 MG TABLET PO SCH ×3 (08:54→23:26)
[2020-05-10] MEDS: amLODIPine 5 MG TABLET PO SCH (08:54)
[2020-05-10] MEDS: Aspirin Enteric Coated 81 MG Tablet PO SCH (08:54)
[2020-05-10] MEDS: Sennosides/Docusate Sodium TABLET PO SCH ×2 (08:54→20:05)
[2020-05-10] MEDS: PARoxetine 20 MG TABLET PO SCH (08:54)
[2020-05-10] MEDS: Polymyxn-B/Trimeth Opth Drops 10 ML BOTTLE LEFT EYE SCH (10:26)
[2020-05-10] MEDS: Nystatin POWDER 30 GM BOTTLE TP SCH ×2 (10:34→20:05)
[2020-05-10] MEDS: Loratadine 10 MG TABLET PO SCH (15:22)
[2020-05-10] MEDS: Simethicone 80 MG TAB.CHEW PO PRN (20:04)
[2020-05-11] MEDS: *HR* Enoxaparin 40 MG/0.4 ML SYRINGE SQ SCH (05:09)
[2020-05-11 07:52] VITALS: BP 134/72
[2020-05-11] MEDS: Sennosides/Docusate Sodium TABLET PO SCH (07:57)
[2020-05-11] MEDS: hydrALAZINE 25 MG TABLET PO SCH (07:57)
[2020-05-11] MEDS: PARoxetine 20 MG TABLET PO SCH (07:57)
[2020-05-11] MEDS: Aspirin Enteric Coated 81 MG Tablet PO SCH (07:57)
[2020-05-11] MEDS: amLODIPine 5 MG TABLET PO SCH (07:57)
[2020-05-11] MEDS: Nystatin POWDER 30 GM BOTTLE TP SCH (07:58)
[2020-05-11] MEDS: Loratadine 10 MG TABLET PO SCH (07:58)
[2020-05-11] MEDS ORDERED: Loratadine 10 MG TABLET PO SCH (15:00)
== END 2020-05-11 12:23 | disposition home health service (06) | DRG 57 ==
LOC: INPGRE 03-30 15:32
PROVIDERS: ADMIT Family Medicine; ATTEND Family Medicine